=== PATIENT | female | born 2000 | race Caucasian/White ===

== ENCOUNTER 2023-12-29 20:13 | Emergency (ER) | payer OTHER ==
[~2023-12-29] VITALS: Ht 167.6 cm; Wt 205.0 kg
[2023-12-29 20:19] VITALS: BP 155/95
[2023-12-29 20:39] LABS: BASO% 0.3 % (0-3); EOS% 3.1 % (0-8); HEMATOCRIT 42.6 % (37.0-47.0); HEMOGLOBIN 14.1 g/dl (12.0-16.0); IMMATURE GRANULOCYTES 0.1 % (0.0-5.0); LYMPH% 35.8 % (15-41); MEAN CELL VOLUME 88.8 fL CALC (80.0-100.0); MEAN CORPUSCULAR HGB 29.4 pG CALC (26.0-32.0); MEAN CORPUSCULAR HGB CONC 33.1 g/dL CAL (32.0-36.0); NEUT# 5.28 thou/uL (2.00-7.15); NEUT% 54.7 % (42-76); RED BLOOD COUNT 4.8 mill/uL (4.20-5.60)
[2023-12-29 20:54] LABS: CREATININE 0.7 mg/dL (0.5-1.0); POTASSIUM 4.2 mmol/l (3.5-5.1)
[2023-12-29 21:00] VITALS: BP 129/90
[2023-12-29 21:09] LABS: URINE BILIRUBIN - DIPSTICK Negative (NEGATIVE); URINE BLOOD DIPSTICK Negative (NEGATIVE); URINE GLUCOSE - DIPSTICK Negative (NEGATIVE); URINE KETONE Negative (NEGATIVE); URINE LEUK ESTERASE Negative (NEGATIVE); URINE NITRITE - DIPSTICK Negative (Negative); URINE PH 5.5 (4.5-8.0); URINE PROTEIN - DIPSTICK Negative (NEG-TRACE); URINE UROBILINOGEN - DIPSTICK 0.2 E.U./dL (0.2)
[2023-12-29 21:10] LABS: URINE COLOR Yellow
[2023-12-29] MEDS ORDERED: OXYBUTYNIN CHLOR5 M2 PO (21:14)
[2023-12-29] MEDS ORDERED: OXYBUTYNIN 5 MG/TAB PO ONE (21:20)
[2023-12-29 21:30] VITALS: BP 104/76
[2023-12-29 21:35] VITALS: BP 104/76
== END 2023-12-29 21:35 | disposition home or self-care (01) | DRG 696 ==
LOC: ED 20:13
PROVIDERS: Family Medicine
DX: R35.0 Frequency of micturition (principal); F17.290 Nicotine dependence, other tobacco product, uncomplicated

== ENCOUNTER 2024-08-21 13:38 | Observation (INO) | payer OTHER ==
[~2024-08-21] VITALS: Ht 167.6 cm; Wt 90.7 kg
[2024-08-21] VITALS (16 sets, daily range): BP systolic 100–121; BP diastolic 57–82
[~2024-08-21 13:38] MED LIST: ACETAMINOPHEN 1,000 MG/100 ML VIAL IV ONE; LIDOCAINE HCL 2% 2ML SDV IV ONE; MIDAZOLAM HCL 2 MG/2 ML VIAL IV ONE; OXYBUTYNIN CHLOR5 M2 PO; PROPOFOL 200 MG/20 ML VIAL IV ONE; ROCURONIUM BROMIDE 10 MG/ML 5 ML VIAL IV ONE; SUCCINYLCHOLINE CHLORIDE 20 MG/ML 10ML VIAL IV ONE; SUGAMMADEX SODIUM 200 MG/2 ML SDV IV ONE
--- NOTE | 2024-08-21 13:46 | NUR ---
PT TO ROOM 11 WITH STEADY GAIT. ACCOMPANIED BY FAMILY MEMBERS
[2024-08-21] MEDS ORDERED: MORPHINE SULFATE 4 MG/ML VIAL IV ONE (14:10)
[2024-08-21] MEDS ORDERED: SODIUM CHLORIDE 0.9% 1,000 ML IV ONE ×2 (14:10→17:59)
[2024-08-21] MEDS ORDERED: ONDANSETRON HCl 4 MG/2 ML SDV IV ONE (14:10)
[2024-08-21] MEDS ORDERED: KETOROLAC TROMETHAMINE 30 MG/ML SDV IV ONE (14:20)
--- NOTE | 2024-08-21 14:24 | NUR ---
PT REQUESTED AN ALTERNATIVE TO MORPHINE, NOTIFIED.
[2024-08-21 14:40] LABS: BASO% 0.2 % (0-3); EOS% 0.8 % (0-8); HEMATOCRIT 41.5 % (37.0-47.0); HEMOGLOBIN 14.2 g/dl (12.0-16.0); IMMATURE GRANULOCYTES 0.2 % (0.0-5.0); MEAN CELL VOLUME 86.3 fL CALC (80.0-100.0); MEAN CORPUSCULAR HGB 29.5 pG CALC (26.0-32.0); MEAN CORPUSCULAR HGB CONC 34.2 g/dL CAL (32.0-36.0); MONO% 5.8 % (2-13); NEUT# 12.77 thou/uL (2.00-7.15); RED BLOOD COUNT 4.81 mill/uL (4.20-5.60)
[2024-08-21 14:50] LABS: BILIRUBIN, TOTAL 0.8 mg/dL (0.02-1.3); CREATININE 0.7 mg/dL (0.5-1.0); POTASSIUM 4.3 mmol/l (3.5-5.1); TOTAL PROTEIN 6.9 g/dL (6.3-8.2)
--- NOTE | 2024-08-21 15:13 | NUR ---
PT REPORTS DECREASE IN PAIN. PT SLEEPING, CT PENDING
[2024-08-21 15:24] LABS: URINE BILIRUBIN - DIPSTICK Negative (NEGATIVE); URINE BLOOD DIPSTICK Negative (NEGATIVE); URINE GLUCOSE - DIPSTICK Negative (NEGATIVE); URINE KETONE Negative (NEGATIVE); URINE LEUK ESTERASE Negative (NEGATIVE); URINE NITRITE - DIPSTICK Negative (Negative); URINE PROTEIN - DIPSTICK Negative (NEG-TRACE); URINE UROBILINOGEN - DIPSTICK 0.2 E.U./dL (0.2)
[2024-08-21 15:28] LABS: URINE COLOR Yellow
--- NOTE | 2024-08-21 16:15 | NUR ---
PT TO CT. REPORTS DECREASE IN PAIN. VITALS STABLE
--- NOTE | 2024-08-21 17:17 | NUR ---
PT TO BE TRANSFERRED TO OR. ALL BELONGINGS PLACED IN LABELED BAG, ALL JEWELRY REMOVED. LAST TIME TO EAT/DRINK @ 0830 PER PT
--- NOTE | 2024-08-21 17:52 | NUR ---
REPORT GIVEN TO OR NURSE LIZA. PT TRANSFERRED TO OR IN STABLE CONDITION. ALL PT BELONGINGS SENT WITH PT ON STRETCHER.
[2024-08-21] MEDS ORDERED: PERCOCET 5/325M1 TAB PO (17:58)
[2024-08-21] MEDS ORDERED: LIDOcaine HCl 1% (Local Anesth.) 20 ML VIAL ONE (18:03)
[2024-08-21] MEDS ORDERED: STERILE WATER FOR IRRIGATION 500 ML BTL IR ONE (18:03)
[2024-08-21] MEDS ORDERED: FAMOTIDINE 10MG/ML 2ML SDV IV ONE (18:10)
[2024-08-21] MEDS ORDERED: TORADOL PO (18:11)
[2024-08-21] MEDS ORDERED: ONDANSETRON HCl 4 MG/2 ML SDV IV PRN (18:15)
[2024-08-21] MEDS ORDERED: HYDROmorphone HCL 2 MG/AMP IV PRN ×2 (18:15→21:40)
[2024-08-21] MEDS ORDERED: oxyCODONE 5MG/ ACETAMINOPHEN 325MG TAB PO PRN (18:15)
[2024-08-21] MEDS ORDERED: SODIUM CHLORIDE 0.9% 1,000 ML IV PRN (18:15)
[2024-08-21] MEDS ORDERED: PIPERACILLIN Sodium-Tazobactam 3.375 GM VIAL IV ONE (18:21)
[2024-08-21] MEDS ORDERED: SODIUM CHLORIDE 0.9% 100 ML IV ONE (18:22)
[2024-08-21] MEDS ORDERED: SODIUM CHLORIDE 1,000 ML BTL IR ONE (19:21)
--- NOTE | 2024-08-21 20:00 | NUR ---
RECEIVED REPORT FROM OR NURSE LIZA, PATIENT TRANSPORTED VIA BED, ARRIVED MS UNIT AT 1952 PATIENT AWAKE, ALERT ORIENTED, IV NS INFUSING WELL ON LAC, PATIENT 3 LAP INCISION WITH DERMABOND, PATIENT DROWSI, PAIN TOLERABLE AT 1/10, LUNG SOUNDS CLEAR, PATIENT ORIENTED TO LIGHT AND CALL LIGHT SYSTEM, SCD IN PLACED.
[2024-08-22] MEDS ORDERED: KETOROLAC TROMETHAMINE 15 MG/ML SDV IV SCH
[2024-08-22 00:18] VITALS: BP 109/76
--- NOTE | 2024-08-22 00:43 | NUR ---
PATIENT WATCHING TV, NOT IN DISTRESS, PS 3/*10, DUE TORADOL GIVEN, ZOSYN CURRENTLY INFUSING SCD IN PLACED, CALL LIGHT IN REACHED,
--- NOTE | 2024-08-22 04:40 | NUR ---
PATIENT AWAKE, BREATHING EVEN UNLABORED, KIMBERLI STATED STARTING TO FEEL PAIN PS 3/10 WILL MEDICATE.
[2024-08-22 06:31] VITALS: BP 109/67
--- NOTE | 2024-08-22 07:45 | NUR ---
SHIFT CHANGE REPORT, PT AWAKE ALERT AND ORIENTED SITTING UP IN BED, C/O ABD PAIN @ 10, IVF INFUSING, SCD IN PLACE, CALL GARCIA IN REACH AND BED LOCKED IN LOWEST POSITION.-
--- NOTE | 2024-08-22 10:21 | NUR ---
PT REQUESTED PAIN MED FOR ABD PAIN, DILALUDID GIVEN. APPROX 10-15 MINS LATER SHE C/O FAST HEART BEAT AND LIGHT HEADEDNESS. VS MEASURED AND RECORDED. APICAL HEART RATE = 113, ON MONITOR HR FLUCTUATES FROM 111- 130 BPM, VS ISAK MEASURED AT THIS TIME.
[2024-08-22 10:25] VITALS: BP 110/67
[2024-08-22] MEDS ORDERED: PIPERACILLIN Sodium-Tazobactam 3.375 GM in SODIUM CHLORIDE 0.9% 100 ML IV SCH ×2 (12:00)
--- NOTE | 2024-08-22 12:39 | NUR ---
HEART RATE WITHIN RANGE AT THIS TIME @ 81-84BPM, PT REPORTS FEELING BETTER AT THIS TIME.
== END 2024-08-22 13:21 | disposition home or self-care (01) | DRG 399 ==
LOC: ED 13:38 → ED-I 14:10 → ED 17:47 → ORM 17:52 → MS2 19:52
PROVIDERS: Family Medicine; Nurse Practitioner; ADMIT Surgery; ATTEND Surgery
PROC: 0DTJ4ZZ Resection of Appendix, Percutaneous Endoscopic Approach (ICD-10-PCS; principal; 2024-08-21)
DX: K35.30 Acute appendicitis with localized peritonitis, without perforation or gangrene (principal)
CPT/HCPCS: J0131; J1100; J1171; J1885; J2405; J2543; Q9967